=== PATIENT | female | born 1940 | race Caucasian/White ===

== ENCOUNTER 2017-12-22 10:55 | Outpatient (CLI) | payer OTHER | END 2017-12-22 19:15 | disposition home or self-care (01) | LOC: SMA 10:55 | PROVIDERS: ATTEND Family Medicine | DX: Z12.31 Encounter for screening mammogram for malignant neoplasm of breast (principal); N64.89 Other specified disorders of breast | CPT/HCPCS: 77067 ==

== ENCOUNTER 2018-01-12 10:40 | Outpatient (CLI) | payer OTHER | END 2018-01-12 19:55 | disposition home or self-care (01) | LOC: SMA 10:40 | PROVIDERS: ATTEND Family Medicine | DX: R92.8 Other abnormal and inconclusive findings on diagnostic imaging of breast (principal) | CPT/HCPCS: 76642; 77066 ==